=== PATIENT | female | born 1940 | race African-American/Black ===

== ENCOUNTER 2018-08-22 03:05 | Inpatient (IN) | payer OTHER, MEDICAID ==
[~2018-08-22] VITALS: Ht 157.5 cm; Wt 49.9 kg
[~2018-08-22 03:05] MED LIST: CHOL100046 PO; CINA30 PO; CYAN10009 PO; FAMO20TA8 PO; FISH OIL; HYDR100T26 PO; NEPVIT PO; NIFE90TA2 PO; OCD MT; SEVE800T8 PO
[2018-08-22] MEDS ORDERED: ACETAMINOPHEN WITH CODEINE 300/30MG TABLET PO ONE (03:45)
[2018-08-22] MEDS ORDERED: TRAMADOL 50MG TABLET PO ONE (05:45)
[2018-08-22] MEDS ORDERED: IBUPROFEN 600MG TABLET PO PRN ×2 (06:00→16:00)
[2018-08-22 06:31] LABS: HEMATOCRIT. 35.5 % (36.0-48.0); HEMOGLOBIN. 11.6 g/dL (12.0-16.0); MEAN CORPUSCULAR HEMOGLOBIN 32.3 pg (28.0-32.0); MEAN CORPUSCULAR VOLUME 99.1 fL (81.0-99.0); MEAN PLATELET VOLUME 8.1 fl (7.4-10.4); PLATELET 148 x1000/uL (130-400); RED BLOOD CELL COUNT 3.58 mill/uL (4.2-5.4); RED CELL DISTRIBUTION WIDTH 15.5 % (11.6-14.6)
[2018-08-22 06:38] LABS: CHLORIDE 95 mEq/L (98-107)
[2018-08-22 07:04] LABS: PLATELET ESTIMATE NORMAL
[2018-08-22] MEDS ORDERED: IPRATROPIUM/ALBUTEROL 0.5-3(2.5)MG/3ML NEB INH PRN (08:15)
[2018-08-22] MEDS ORDERED: GUAIFENESIN 200MG/10ML SUGAR FREE UDC PO PRN (08:15)
[2018-08-22] MEDS ORDERED: DOCUSATE SODIUM 100MG CAPSULE PO PRN (08:15)
[2018-08-22] MEDS ORDERED: MORPHINE SULFATE 4 MG/ML CPJ (NOT FOR IM USE) IV PRN (08:15)
[2018-08-22] MEDS ORDERED: CLONIDINE 0.1MG TABLET PO PRN (08:15)
[2018-08-22] MEDS ORDERED: TRAMADOL 50MG TABLET PO PRN (08:15)
[2018-08-22] MEDS ORDERED: ONDANSETRON HCL 4MG/2ML INJ IV PRN (08:15)
[2018-08-22] MEDS ORDERED: MAGNESIUM/ALUMINUM HYDROXIDE/SIMETHICONE 30ML UDC PO PRN (08:15)
[2018-08-22] MEDS ORDERED: NITROGLYCERIN 0.4MG TABLET SL SL PRN (08:15)
[2018-08-22] MEDS ORDERED: ACETAMINOPHEN 325MG TABLET PO PRN (08:15)
[2018-08-22] MEDS ORDERED: LORAZEPAM 0.5MG TABLET PO PRN (08:15)
[2018-08-22 08:55] VITALS: BP 114/62
[2018-08-22] MEDS: FOLIC ACID/VITAMIN B COMP W-C TABLET PO SCH (10:21)
[2018-08-22] MEDS: FAMOTIDINE 20MG TABLET PO SCH (10:21)
[2018-08-22] MEDS: SEVELAMER CARBONATE 800 MG TABLET PO SCH ×3 (10:21→17:21)
[2018-08-22] MEDS: ENOXAPARIN 30MG/0.3ML SYR SUBCUT SCH (10:22)
[2018-08-22 12:00] VITALS: BP 114/62
[2018-08-22 15:49] VITALS: BP 127/59
[2018-08-22 20:00] VITALS: BP 117/50
[2018-08-22] MEDS: CINACALCET HCL 30MG TABLET PO SCH (20:29)
[2018-08-22] MEDS ORDERED: ZOLPIDEM TARTRATE 5MG TABLET PO PRN (21:00)
[2018-08-23] VITALS: BP 128/62
[2018-08-23 06:04] LABS: BASOPHILS % 0.4 % (0.0-2.0); EOSINOPHILS % 1.3 % (0.0-5.0); HEMATOCRIT. 33.8 % (36.0-48.0); HEMOGLOBIN. 11.4 g/dL (12.0-16.0); LYMPHOCYTES % 14.7 % (20.0-50.0); MEAN CORPUSCULAR HEMOGLOBIN 33.1 pg (28.0-32.0); MEAN CORPUSCULAR VOLUME 98.7 fL (81.0-99.0); MEAN PLATELET VOLUME 8.8 fl (7.4-10.4); NEUTROPHILS % 71.6 % (40.0-76.0); PLATELET 147 x1000/uL (130-400); RED BLOOD CELL COUNT 3.43 mill/uL (4.2-5.4); RED CELL DISTRIBUTION WIDTH 15.7 % (11.6-14.6)
[2018-08-23 06:35] LABS: PHOSPHORUS 3.1 mg/dL (2.5-4.9)
[2018-08-23 08:00] VITALS: BP 106/55
[2018-08-23] MEDS: FAMOTIDINE 20MG TABLET PO SCH (09:03)
[2018-08-23] MEDS: SEVELAMER CARBONATE 800 MG TABLET PO SCH ×3 (09:03→18:32)
[2018-08-23] MEDS: CINACALCET HCL 30MG TABLET PO SCH (09:03)
[2018-08-23] MEDS: FOLIC ACID/VITAMIN B COMP W-C TABLET PO SCH (09:03)
[2018-08-23] MEDS: ENOXAPARIN 30MG/0.3ML SYR SUBCUT SCH (10:31)
[2018-08-23 12:00] VITALS: BP 103/55
[2018-08-23 16:00] VITALS: BP 135/66
[2018-08-23 18:58] VITALS: BP 127/62
== END 2018-08-23 19:30 | disposition short-term general hospital (02) | DRG 553 ==
LOC: ER 03:05 → 6EST 06:01 → EDBEDREQ 06:02 → EDBEDREQTM 06:02 → ENRESERV 06:57
PROVIDERS: ADMIT Internal Medicine; ATTEND Internal Medicine
PROC: 5A1D70Z Performance of Urinary Filtration, Intermittent, Less than 6 Hours Per Day (ICD-10-PCS; principal; 2018-08-22)
DX: M16.10 Unilateral primary osteoarthritis, unspecified hip (principal); N18.6 End stage renal disease; E44.0 Moderate protein-calorie malnutrition; I13.2 Hypertensive heart and chronic kidney disease with heart failure and with stage 5 chronic kidney disease, or end stage renal disease; N25.81 Secondary hyperparathyroidism of renal origin; S76.012A Strain of muscle, fascia and tendon of left hip, initial encounter; D63.8 Anemia in other chronic diseases classified elsewhere; R26.2 Difficulty in walking, not elsewhere classified; J44.9 Chronic obstructive pulmonary disease, unspecified; I50.9 Heart failure, unspecified; X58.XXXA Exposure to other specified factors, initial encounter; Z99.2 Dependence on renal dialysis; Z88.0 Allergy status to penicillin; Z88.8 Allergy status to other drugs, medicaments and biological substances; Z79.899 Other long term (current) drug therapy; Y93.89 Activity, other specified; Z82.49 Family history of ischemic heart disease and other diseases of the circulatory system; Y92.89 Other specified places as the place of occurrence of the external cause; Y99.8 Other external cause status; Z68.20 Body mass index [BMI] 20.0-20.9, adult
CPT/HCPCS: 36415; 71045; 72192; 73721; 80048; 80061; 83036; 83735; 84100; 85651; 86140; 93970; 99285; J1650; J7030

== ENCOUNTER 2019-05-21 06:18 | Emergency (ER) | payer OTHER, MEDICAID ==
[~2019-05-21] VITALS: Ht 162.6 cm; Wt 64.0 kg
[2019-05-21] MEDS ORDERED: ONDANSETRON HCL 4MG/2ML INJ IV ONE ×2 (08:15→09:30)
[2019-05-21 10:39] LABS: INR 1.1; PROTHROMBIN TIME 11.4 sec (9.6-11.0)
[2019-05-21 10:44] LABS: CHLORIDE 95 mEq/L (98-107)
[2019-05-21 10:53] LABS: BASOPHILS % 0.7 % (0.0-2.0); EOSINOPHILS % 1.5 % (0.0-5.0); HEMATOCRIT. 40.7 % (36.0-48.0); HEMOGLOBIN. 13.6 g/dL (12.0-16.0); LYMPHOCYTES % 18.8 % (20.0-50.0); MEAN CORPUSCULAR HEMOGLOBIN 33.1 pg (28.0-32.0); MEAN CORPUSCULAR VOLUME 99.1 fL (81.0-99.0); MEAN PLATELET VOLUME 9.9 fl (7.4-10.4); MONOCYTES % 9.8 % (2.0-8.0); NEUTROPHILS % 69.2 % (40.0-76.0); PLATELET 103 x1000/uL (130-400); RED BLOOD CELL COUNT 4.11 mill/uL (4.2-5.4); RED CELL DISTRIBUTION WIDTH 16.3 % (11.6-14.6)
[2019-05-21 13:01] VITALS: BP 156/78
[2019-05-21] MEDS ORDERED: IOHEXOL-300 100 ML BOTTLE ONE (15:22)
== END 2019-05-21 14:50 | disposition short-term general hospital (02) ==
LOC: ER 06:49
DX: R10.13 Epigastric pain (principal); J45.909 Unspecified asthma, uncomplicated; I12.9 Hypertensive chronic kidney disease with stage 1 through stage 4 chronic kidney disease, or unspecified chronic kidney disease; N18.9 Chronic kidney disease, unspecified; Z88.8 Allergy status to other drugs, medicaments and biological substances; Z88.0 Allergy status to penicillin
CPT/HCPCS: 36415; 71045; 74177; 76705; 80053; 83690; 84484; 85025; 85610; 93005; 96374; 96376; 99285; J2405; Q9967

== ENCOUNTER 2019-05-30 00:43 | Emergency (ER) | payer OTHER, MEDICAID ==
[~2019-05-30] VITALS: Ht 160 cm; Wt 55.0 kg
[~2019-05-30 00:43] MED LIST changes: +CYAN-50 PO; -CYAN10009 PO
[2019-05-30 02:26] LABS: CHLORIDE 101 mEq/L (98-107)
[2019-05-30 02:31] LABS: HEMATOCRIT 37.6 % (36.0-48.0); HEMOGLOBIN 12.5 g/dL (12.0-16.0); MEAN CORPUSCULAR HEMOGLOBIN 32.9 pg (28.0-32.0); MEAN CORPUSCULAR VOLUME 99.2 fL (81.0-99.0); PLATELET 163 x1000/uL (130-400); RED BLOOD CELL COUNT 3.79 mill/uL (4.2-5.4); RED CELL DISTRIBUTION WIDTH 16.7 % (11.6-14.6)
[2019-05-30 03:15] VITALS: BP 126/70
== END 2019-05-30 03:15 | disposition home or self-care (01) ==
LOC: ER 00:43
DX: T82.49XA Other complication of vascular dialysis catheter, initial encounter (principal); J45.909 Unspecified asthma, uncomplicated; N18.6 End stage renal disease; Z99.2 Dependence on renal dialysis; Z88.0 Allergy status to penicillin; Z88.8 Allergy status to other drugs, medicaments and biological substances; Y84.1 Kidney dialysis as the cause of abnormal reaction of the patient, or of later complication, without mention of misadventure at the time of the procedure; Y92.018 Other place in single-family (private) house as the place of occurrence of the external cause
CPT/HCPCS: 36415; 85027; 86850; 86900; 99284

== ENCOUNTER 2019-07-20 22:29 | Inpatient (IN) | payer OTHER, MEDICAID ==
[~2019-07-20] VITALS: Ht 157.5 cm; Wt 51.9 kg
[2019-07-20] MEDS ORDERED: SODIUM CHLORIDE 0.9% 500 ML IV ONE (22:46)
[2019-07-20] MEDS ORDERED: ONDANSETRON HCL 4MG/2ML INJ IV STA (22:46)
[2019-07-20] MEDS ORDERED: MORPHINE SULFATE 4 MG/ML CPJ (NOT FOR IM USE) IV STA (22:46)
[2019-07-20 23:22] LABS: BASOPHILS % 0.4 % (0.0-2.0); EOSINOPHILS % 1.6 % (0.0-5.0); HEMATOCRIT. 42.9 % (36.0-48.0); HEMOGLOBIN. 13.9 g/dL (12.0-16.0); LYMPHOCYTES % 13.1 % (20.0-50.0); MEAN CORPUSCULAR HEMOGLOBIN 32.7 pg (28.0-32.0); MEAN CORPUSCULAR VOLUME 100.6 fL (81.0-99.0); MEAN PLATELET VOLUME 9.3 fl (7.4-10.4); MONOCYTES % 10.8 % (2.0-8.0); NEUTROPHILS % 74.1 % (40.0-76.0); PLATELET 110 x1000/uL (130-400); RED BLOOD CELL COUNT 4.26 mill/uL (4.2-5.4); RED CELL DISTRIBUTION WIDTH 16.7 % (11.6-14.6)
[2019-07-20 23:26] LABS: CHLORIDE 95 mEq/L (98-107)
[2019-07-20 23:28] LABS: INR 1.1; PROTHROMBIN TIME 11.6 sec (9.6-11.0)
[2019-07-21] MEDS ORDERED: CEFTRIAXONE 2 G PREMIX 50 ML IV SCH (01:48)
[2019-07-21] MEDS ORDERED: METRONIDAZOLE 500 MG PREMIX 100 ML IV SCH (01:49)
[2019-07-21 08:38] VITALS: BP 118/60
[2019-07-21 08:40] VITALS: BP 118/60
[2019-07-21 12:00] VITALS: BP 121/57
[2019-07-21] MEDS: HYDROCODONE/ACETAMINOPHEN 10/325MG TABLET PO PRN (12:05)
[2019-07-21 16:00] VITALS: BP 129/70
[2019-07-21] MEDS ORDERED: MAGNESIUM/ALUMINUM HYDROXIDE/SIMETHICONE 30ML UDC PO PRN (19:15)
[2019-07-21] MEDS ORDERED: CLONIDINE 0.1MG TABLET PO PRN (19:15)
[2019-07-21] MEDS ORDERED: ONDANSETRON HCL 4MG/2ML INJ IV PRN (19:15)
[2019-07-21] MEDS ORDERED: LORAZEPAM 0.5MG TABLET PO PRN (19:15)
[2019-07-21] MEDS ORDERED: DIPHENHYDRAMINE 50MG/ML VIAL IV PRN (19:15)
[2019-07-21] MEDS ORDERED: ACETAMINOPHEN 325MG TABLET PO PRN (19:15)
[2019-07-21] MEDS ORDERED: IPRATROPIUM/ALBUTEROL 0.5-3(2.5)MG/3ML NEB HHN PRN (19:15)
[2019-07-21] MEDS ORDERED: GUAIFENESIN 200MG/10ML SUGAR FREE UDC PO PRN (19:15)
[2019-07-21] MEDS ORDERED: MAGNESIUM HYDROXIDE 400MG/5ML 30ML UDC PO PRN (19:30)
[2019-07-21] MEDS ORDERED: ZOLPIDEM TARTRATE 5MG TABLET PO PRN (19:30)
[2019-07-21 20:00] VITALS: BP 121/62
[2019-07-21] MEDS ORDERED: FAMOTIDINE 20MG TABLET PO SCH (21:00)
[2019-07-22] VITALS: BP 119/59
[2019-07-22 04:00] VITALS: BP 121/54
[2019-07-22 08:00] VITALS: BP 120/56
[2019-07-22] MEDS: SEVELAMER CARBONATE 800 MG TABLET PO SCH ×3 (08:29→18:39)
[2019-07-22] MEDS: CALCIUM CARBONATE 500MG TABLET CHEW PO SCH ×2 (08:29→18:39)
[2019-07-22] MEDS ORDERED: CHOLECALCIFEROL (D3) 1000 UNIT TABLET PO SCH (09:00)
[2019-07-22] MEDS: HYDROCODONE/ACETAMINOPHEN 10/325MG TABLET PO PRN (09:01)
[2019-07-22 12:00] VITALS: BP 122/58
[2019-07-22 16:00] VITALS: BP 135/59
[2019-07-22 17:25] VITALS: BP 135/59
== END 2019-07-22 19:30 | disposition home or self-care (01) | DRG 444 ==
LOC: ER 22:29 → 6WST 07-21 05:29 → EDBEDREQDT 07-21 05:32 → EDBEDREQTM 07-21 05:32 → EDBEDREQ 07-21 05:32 → ENRESERV 07-21 07:51
PROVIDERS: ADMIT Internal Medicine; ATTEND Internal Medicine
PROC: 5A1D70Z Performance of Urinary Filtration, Intermittent, Less than 6 Hours Per Day (ICD-10-PCS; principal; 2019-07-21)
PROC: 5A1D70Z Performance of Urinary Filtration, Intermittent, Less than 6 Hours Per Day (ICD-10-PCS; 2019-07-22)
DX: K81.9 Cholecystitis, unspecified (principal); N18.6 End stage renal disease; N25.81 Secondary hyperparathyroidism of renal origin; I13.2 Hypertensive heart and chronic kidney disease with heart failure and with stage 5 chronic kidney disease, or end stage renal disease; I50.42 Chronic combined systolic (congestive) and diastolic (congestive) heart failure; E78.00 Pure hypercholesterolemia, unspecified; M54.9 Dorsalgia, unspecified; D69.6 Thrombocytopenia, unspecified; Z99.2 Dependence on renal dialysis; Z90.710 Acquired absence of both cervix and uterus; Z79.899 Other long term (current) drug therapy; Z88.0 Allergy status to penicillin; Z88.8 Allergy status to other drugs, medicaments and biological substances
CPT/HCPCS: 36415; 71045; 74176; 76705; 83605; 84145; 84484; 86850; 86900; 93005; 96365; 96367; 96375; 97162; 97166; 97530; 99291; J0696; J2270; J2405; J3490; J7040

== ENCOUNTER 2019-09-16 01:30 | Emergency (ER) | payer OTHER, MEDICAID ==
[~2019-09-16] VITALS: Ht 160 cm; Wt 48.0 kg
[~2019-09-16 01:30] MED LIST changes: -FISH OIL; -HYDR100T26 PO
[2019-09-16] MEDS ORDERED: HYDROCODONE/ACETAMINOPHEN 5/325MG TABLET PO ONE (02:00)
[2019-09-16 04:10] VITALS: BP 119/55
== END 2019-09-16 04:56 | disposition home or self-care (01) ==
LOC: ER 01:30
DX: M79.672 Pain in left foot (principal); M79.671 Pain in right foot; I12.0 Hypertensive chronic kidney disease with stage 5 chronic kidney disease or end stage renal disease; N18.6 End stage renal disease; Z99.2 Dependence on renal dialysis; Z90.10 Acquired absence of unspecified breast and nipple; Z90.710 Acquired absence of both cervix and uterus; Z88.0 Allergy status to penicillin; Z88.8 Allergy status to other drugs, medicaments and biological substances
CPT/HCPCS: 36415; 80048; 99283

== ENCOUNTER 2019-09-19 00:08 | Inpatient (IN) | payer OTHER, MEDICAID ==
[~2019-09-19] VITALS: Ht 157.5 cm; Wt 40.8 kg
[2019-09-19 04:47] LABS: BASOPHILS % 0.6 % (0.0-2.0); EOSINOPHILS % 4.9 % (0.0-5.0); HEMATOCRIT. 40.7 % (36.0-48.0); HEMOGLOBIN. 13.1 g/dL (12.0-16.0); LYMPHOCYTES % 22.1 % (20.0-50.0); MEAN CORPUSCULAR HEMOGLOBIN 32.6 pg (28.0-32.0); MEAN CORPUSCULAR VOLUME 101.2 fL (81.0-99.0); MEAN PLATELET VOLUME 10.1 fl (7.4-10.4); MONOCYTES % 9.4 % (2.0-8.0); PLATELET 97 x1000/uL (130-400); RED BLOOD CELL COUNT 4.02 mill/uL (4.2-5.4); RED CELL DISTRIBUTION WIDTH 17.3 % (11.6-14.6)
[2019-09-19 04:55] LABS: CHLORIDE 105 mEq/L (98-107)
[2019-09-19] MEDS ORDERED: MAGNESIUM/ALUMINUM HYDROXIDE/SIMETHICONE 30ML UDC PO PRN (08:45)
[2019-09-19] MEDS ORDERED: GUAIFENESIN 200MG/10ML SUGAR FREE UDC PO PRN (08:45)
[2019-09-19] MEDS ORDERED: DIPHENHYDRAMINE 50MG/ML VIAL IV PRN (08:45)
[2019-09-19] MEDS ORDERED: ACETAMINOPHEN 325MG TABLET PO PRN (08:45)
[2019-09-19] MEDS ORDERED: CLONIDINE 0.1MG TABLET PO PRN (08:45)
[2019-09-19] MEDS ORDERED: ONDANSETRON HCL 4MG/2ML INJ IV PRN (08:45)
[2019-09-19] MEDS ORDERED: IPRATROPIUM/ALBUTEROL 0.5-3(2.5)MG/3ML NEB NEB PRN (08:45)
[2019-09-19 10:15] VITALS: BP 125/68
[2019-09-19 11:18] VITALS: BP 125/68
[2019-09-19 16:00] VITALS: BP 137/68
[2019-09-19 20:00] VITALS: BP 135/69
[2019-09-19] MEDS: SODIUM CHLORIDE 0.9% INJ 3ML FLUSH IVF SCH (22:34)
[2019-09-20] VITALS: BP 126/58
[2019-09-20 04:00] VITALS: BP 131/63
[2019-09-20] MEDS: SODIUM CHLORIDE 0.9% INJ 3ML FLUSH IVF SCH (06:14)
[2019-09-20 08:00] VITALS: BP 130/60
[2019-09-20 12:00] VITALS: BP 130/61
[2019-09-20 15:12] VITALS: BP 149/68
== END 2019-09-20 16:30 | disposition home or self-care (01) | DRG 291 ==
LOC: ER 00:08 → 7WST 05:59 → ENRESERV 07:22
PROVIDERS: ADMIT Internal Medicine; ATTEND Internal Medicine
PROC: 5A1D70Z Performance of Urinary Filtration, Intermittent, Less than 6 Hours Per Day (ICD-10-PCS; principal; 2019-09-19)
DX: I13.2 Hypertensive heart and chronic kidney disease with heart failure and with stage 5 chronic kidney disease, or end stage renal disease (principal); I50.33 Acute on chronic diastolic (congestive) heart failure; N18.6 End stage renal disease; M79.672 Pain in left foot; I73.9 Peripheral vascular disease, unspecified; M79.671 Pain in right foot; I25.10 Atherosclerotic heart disease of native coronary artery without angina pectoris; Z90.710 Acquired absence of both cervix and uterus; Z99.2 Dependence on renal dialysis; Z88.0 Allergy status to penicillin; Z88.8 Allergy status to other drugs, medicaments and biological substances; Z79.899 Other long term (current) drug therapy; Z90.10 Acquired absence of unspecified breast and nipple
CPT/HCPCS: 36415; 71045; 73630; 83880; 84484; 93005; 93923; 99285

== ENCOUNTER 2019-09-21 07:19 | Emergency (ER) | payer OTHER, MEDICAID ==
[~2019-09-21] VITALS: Ht 165.1 cm; Wt 60.0 kg
[2019-09-21] MEDS ORDERED: OXYCODONE HCL/ACETAMINOPHEN 5/325MG TABLET PO ONE (08:15)
[2019-09-21] MEDS ORDERED: KETOROLAC 60MG/2ML VIAL IM ONE (08:15)
[2019-09-21 10:18] VITALS: BP 139/65
== END 2019-09-21 10:22 | disposition home or self-care (01) ==
LOC: ER 07:19
DX: M54.2 Cervicalgia (principal)
CPT/HCPCS: 72125; 96372; 99284; J1885

== ENCOUNTER 2019-10-18 04:00 | Inpatient (IN) | payer OTHER, MEDICAID ==
[~2019-10-18] VITALS: Ht 152.4 cm; Wt 46.3 kg
[2019-10-18] MEDS ORDERED: SODIUM CHLORIDE 0.9% 1,000 ML IV ONE (04:58)
[2019-10-18 06:47] LABS: BASOPHILS % 0.9 % (0.0-2.0); EOSINOPHILS % 3.7 % (0.0-5.0); HEMATOCRIT. 43.2 % (36.0-48.0); HEMOGLOBIN. 14.1 g/dL (12.0-16.0); LYMPHOCYTES % 21.9 % (20.0-50.0); MEAN CORPUSCULAR HEMOGLOBIN 32.7 pg (28.0-32.0); MEAN CORPUSCULAR VOLUME 100.1 fL (81.0-99.0); MEAN PLATELET VOLUME 9.2 fl (7.4-10.4); MONOCYTES % 10.6 % (2.0-8.0); NEUTROPHILS % 62.9 % (40.0-76.0); PLATELET 102 x1000/uL (130-400); RED BLOOD CELL COUNT 4.31 mill/uL (4.2-5.4); RED CELL DISTRIBUTION WIDTH 17.6 % (11.6-14.6)
[2019-10-18 06:53] LABS: CHLORIDE 102 mEq/L (98-107)
[2019-10-18 07:12] LABS: INR 1.1; PROTHROMBIN TIME 11.6 sec (9.6-11.0)
[2019-10-18] MEDS ORDERED: ONDANSETRON HCL 4MG/2ML INJ IV ONE (07:45)
[2019-10-18] MEDS ORDERED: KETOROLAC 15MG/ML VIAL IV ONE (07:45)
[2019-10-18] MEDS ORDERED: METRONIDAZOLE 500 MG PREMIX 100 ML IV ONE (08:30)
[2019-10-18] MEDS ORDERED: CEFTRIAXONE 1 G PREMIX 50 ML IV ONE (08:30)
[2019-10-18] MEDS ORDERED: LORAZEPAM 0.5MG TABLET PO PRN (15:00)
[2019-10-18] MEDS ORDERED: IPRATROPIUM/ALBUTEROL 0.5-3(2.5)MG/3ML NEB HHN PRN (15:00)
[2019-10-18] MEDS ORDERED: CLONIDINE 0.1MG TABLET PO PRN (15:00)
[2019-10-18] MEDS ORDERED: ACETAMINOPHEN 325MG TABLET PO PRN (15:00)
[2019-10-18] MEDS ORDERED: IOHEXOL-350 100 ML BOTTLE ONE (15:16)
[2019-10-18 15:59] LABS: AMYLASE 219 IU/L (25-115)
[2019-10-18 16:23] VITALS: BP 122/64
[2019-10-18] MEDS: HYDROCODONE/ACETAMINOPHEN 5/325MG TABLET PO PRN ×2 (16:44→22:45)
[2019-10-18 18:31] VITALS: BP 122/64
[2019-10-18 20:00] VITALS: BP 123/64
[2019-10-19] VITALS: BP 115/66
[2019-10-19 04:00] VITALS: BP 117/63
[2019-10-19 07:24] LABS: BASOPHILS % 1.1 % (0.0-2.0); EOSINOPHILS % 8.7 % (0.0-5.0); HEMATOCRIT. 44.1 % (36.0-48.0); HEMOGLOBIN. 14.3 g/dL (12.0-16.0); LYMPHOCYTES % 25.8 % (20.0-50.0); MEAN CORPUSCULAR HEMOGLOBIN 32.4 pg (28.0-32.0); MEAN CORPUSCULAR VOLUME 100.1 fL (81.0-99.0); MEAN PLATELET VOLUME 9.3 fl (7.4-10.4); NEUTROPHILS % 53.4 % (40.0-76.0); PLATELET 113 x1000/uL (130-400); RED BLOOD CELL COUNT 4.41 mill/uL (4.2-5.4); RED CELL DISTRIBUTION WIDTH 17.9 % (11.6-14.6)
[2019-10-19 07:53] LABS: FOLIC ACID (FOLATE) SERUM >20 ng/mL ng/mL (>5.38)
[2019-10-19 08:03] LABS: VITAMIN B12 SERUM 1421 pg/mL (211-911)
[2019-10-19 08:15] VITALS: BP 131/62
[2019-10-19 08:15] LABS: PHOSPHORUS 4.7 mg/dL (2.5-4.9)
[2019-10-19] MEDS: HYDROCODONE/ACETAMINOPHEN 5/325MG TABLET PO PRN ×2 (10:00→21:13)
[2019-10-19 12:19] VITALS: BP 152/75
[2019-10-19 16:28] VITALS: BP 125/62
[2019-10-19 20:00] VITALS: BP 124/60
[2019-10-19] MEDS: NIFEDIPINE XL 90MG TAB PO SCH (21:03)
[2019-10-20] VITALS: BP 124/62
[2019-10-20 04:00] VITALS: BP 117/50
[2019-10-20] MEDS: HYDROCODONE/ACETAMINOPHEN 5/325MG TABLET PO PRN ×3 (05:18→18:36)
[2019-10-20 07:10] LABS: EOSINOPHILS % 6.9 % (0.0-5.0); HEMATOCRIT. 38.9 % (36.0-48.0); HEMOGLOBIN. 12.8 g/dL (12.0-16.0); LYMPHOCYTES % 21.5 % (20.0-50.0); MEAN CORPUSCULAR HEMOGLOBIN 32.8 pg (28.0-32.0); MEAN CORPUSCULAR VOLUME 99.6 fL (81.0-99.0); MEAN PLATELET VOLUME 9.3 fl (7.4-10.4); MONOCYTES % 14.2 % (2.0-8.0); NEUTROPHILS % 56.4 % (40.0-76.0); PLATELET 108 x1000/uL (130-400); RED BLOOD CELL COUNT 3.91 mill/uL (4.2-5.4); RED CELL DISTRIBUTION WIDTH 17.5 % (11.6-14.6)
[2019-10-20] MEDS: FOLIC ACID/VITAMIN B COMP W-C TABLET PO SCH ×2 (09:00→09:25)
[2019-10-20] MEDS: CHOLECALCIFEROL (D3) 1000 UNIT TABLET PO SCH ×2 (09:00→09:25)
[2019-10-20] MEDS: NIFEDIPINE XL 90MG TAB PO SCH ×2 (09:00→09:24)
[2019-10-20] MEDS: CYANOCOBALAMIN 1000MCG TABLET PO SCH ×2 (09:00→09:25)
[2019-10-20] MEDS: MORPHINE SULFATE 2 MG/ML CPJ (NOT FOR IM USE) IV PRN (09:46)
[2019-10-20 12:00] VITALS: BP 112/55
[2019-10-20 16:00] VITALS: BP 101/49
[2019-10-20 20:00] VITALS: BP 121/51
[2019-10-20] MEDS: NIFEDIPINE XL 30MG TAB PO SCH (21:00)
[2019-10-21] VITALS: BP 117/42
[2019-10-21 04:00] VITALS: BP 121/54
[2019-10-21 06:41] LABS: BASOPHILS % 0.9 % (0.0-2.0); EOSINOPHILS % 7.8 % (0.0-5.0); HEMATOCRIT. 37.8 % (36.0-48.0); HEMOGLOBIN. 12.6 g/dL (12.0-16.0); MEAN CORPUSCULAR HEMOGLOBIN 32.7 pg (28.0-32.0); MEAN CORPUSCULAR VOLUME 98.4 fL (81.0-99.0); MEAN PLATELET VOLUME 8.8 fl (7.4-10.4); MONOCYTES % 11.4 % (2.0-8.0); NEUTROPHILS % 53.9 % (40.0-76.0); PLATELET 112 x1000/uL (130-400); RED BLOOD CELL COUNT 3.84 mill/uL (4.2-5.4); RED CELL DISTRIBUTION WIDTH 17.5 % (11.6-14.6)
[2019-10-21 06:57] LABS: PHOSPHORUS 4.8 mg/dL (2.5-4.9)
[2019-10-21 08:00] VITALS: BP 165/84
[2019-10-21] MEDS: FOLIC ACID/VITAMIN B COMP W-C TABLET PO SCH (08:50)
[2019-10-21] MEDS: HYDROCODONE/ACETAMINOPHEN 5/325MG TABLET PO PRN ×3 (08:51→23:03)
[2019-10-21 13:50] VITALS: BP 123/62
[2019-10-21 16:45] VITALS: BP 113/56
[2019-10-21 20:00] VITALS: BP 132/58
[2019-10-21] MEDS: NIFEDIPINE XL 30MG TAB PO SCH (21:00)
[2019-10-22] VITALS: BP 134/60
[2019-10-22 04:00] VITALS: BP 143/60
[2019-10-22] MEDS: HYDROCODONE/ACETAMINOPHEN 5/325MG TABLET PO PRN ×2 (04:35→21:00)
[2019-10-22 06:54] LABS: PHOSPHORUS 3.9 mg/dL (2.5-4.9)
[2019-10-22 08:00] VITALS: BP 144/74
[2019-10-22 08:04] LABS: BASOPHILS % 1.4 % (0.0-2.0); EOSINOPHILS % 4.1 % (0.0-5.0); HEMATOCRIT. 39.9 % (36.0-48.0); HEMOGLOBIN. 13.1 g/dL (12.0-16.0); LYMPHOCYTES % 15.2 % (20.0-50.0); MEAN CORPUSCULAR HEMOGLOBIN 32.5 pg (28.0-32.0); MEAN CORPUSCULAR VOLUME 98.7 fL (81.0-99.0); MEAN PLATELET VOLUME 9.4 fl (7.4-10.4); MONOCYTES % 14.8 % (2.0-8.0); NEUTROPHILS % 64.5 % (40.0-76.0); PLATELET 118 x1000/uL (130-400); RED BLOOD CELL COUNT 4.04 mill/uL (4.2-5.4); RED CELL DISTRIBUTION WIDTH 17.2 % (11.6-14.6)
[2019-10-22] MEDS: FOLIC ACID/VITAMIN B COMP W-C TABLET PO SCH (09:41)
[2019-10-22 12:00] VITALS: BP 131/58
[2019-10-22 16:53] VITALS: BP 139/69
[2019-10-22 20:00] VITALS: BP 136/72
[2019-10-22] MEDS: NIFEDIPINE XL 30MG TAB PO SCH (21:01)
[2019-10-23] VITALS: BP 126/61
[2019-10-23 04:00] VITALS: BP 130/74
[2019-10-23] MEDS: HYDROCODONE/ACETAMINOPHEN 5/325MG TABLET PO PRN ×3 (04:00→14:53)
[2019-10-23 08:00] VITALS: BP 127/61
[2019-10-23] MEDS: FOLIC ACID/VITAMIN B COMP W-C TABLET PO SCH (08:19)
[2019-10-23 12:00] VITALS: BP 117/60
[2019-10-23 16:00] VITALS: BP 120/55
[2019-10-23 20:00] VITALS: BP 123/57
[2019-10-23] MEDS: NIFEDIPINE XL 30MG TAB PO SCH (21:00)
[2019-10-23] MEDS: MORPHINE SULFATE 2 MG/ML CPJ (NOT FOR IM USE) IV PRN (23:06)
[2019-10-24] VITALS: BP 135/69
[2019-10-24 04:00] VITALS: BP 137/71
[2019-10-24 06:54] LABS: BASOPHILS % 0.6 % (0.0-2.0); EOSINOPHILS % 5.2 % (0.0-5.0); HEMOGLOBIN. 12.8 g/dL (12.0-16.0); LYMPHOCYTES % 19.4 % (20.0-50.0); MEAN CORPUSCULAR HEMOGLOBIN 32.4 pg (28.0-32.0); MEAN CORPUSCULAR VOLUME 98.7 fL (81.0-99.0); MEAN PLATELET VOLUME 9.2 fl (7.4-10.4); MONOCYTES % 13.4 % (2.0-8.0); NEUTROPHILS % 61.4 % (40.0-76.0); PLATELET 120 x1000/uL (130-400); RED BLOOD CELL COUNT 3.95 mill/uL (4.2-5.4); RED CELL DISTRIBUTION WIDTH 17.3 % (11.6-14.6)
[2019-10-24 07:30] LABS: PHOSPHORUS 3.4 mg/dL (2.5-4.9)
[2019-10-24 08:00] VITALS: BP 135/65
[2019-10-24] MEDS: FOLIC ACID/VITAMIN B COMP W-C TABLET PO SCH (08:38)
[2019-10-24] MEDS: MORPHINE SULFATE 2 MG/ML CPJ (NOT FOR IM USE) IV PRN (08:39)
[2019-10-24 12:00] VITALS: BP 136/67
[2019-10-24 14:44] VITALS: BP 136/67
== END 2019-10-24 17:32 | disposition home health service (06) | DRG 393 ==
LOC: ER 04:00 → ENRESERV 15:39 → 6WST 16:20
PROVIDERS: ADMIT Internal Medicine; ATTEND Internal Medicine
PROC: 5A1D70Z Performance of Urinary Filtration, Intermittent, Less than 6 Hours Per Day (ICD-10-PCS; principal; 2019-10-19)
PROC: 5A1D70Z Performance of Urinary Filtration, Intermittent, Less than 6 Hours Per Day (ICD-10-PCS; 2019-10-21)
PROC: 5A1D70Z Performance of Urinary Filtration, Intermittent, Less than 6 Hours Per Day (ICD-10-PCS; 2019-10-22)
PROC: 5A1D70Z Performance of Urinary Filtration, Intermittent, Less than 6 Hours Per Day (ICD-10-PCS; 2019-10-24)
DX: K63.89 Other specified diseases of intestine (principal); I50.23 Acute on chronic systolic (congestive) heart failure; N18.6 End stage renal disease; K55.049 Acute infarction of large intestine, extent unspecified; N25.81 Secondary hyperparathyroidism of renal origin; R18.8 Other ascites; I42.0 Dilated cardiomyopathy; I13.2 Hypertensive heart and chronic kidney disease with heart failure and with stage 5 chronic kidney disease, or end stage renal disease; Z94.0 Kidney transplant status; D69.6 Thrombocytopenia, unspecified; D72.819 Decreased white blood cell count, unspecified; D72.821 Monocytosis (symptomatic); D75.89 Other specified diseases of blood and blood-forming organs; I44.0 Atrioventricular block, first degree; I27.20 Pulmonary hypertension, unspecified; I25.10 Atherosclerotic heart disease of native coronary artery without angina pectoris; E21.3 Hyperparathyroidism, unspecified; R26.89 Other abnormalities of gait and mobility; R74.0 Nonspecific elevation of levels of transaminase and lactic acid dehydrogenase [LDH]; R74.8 Abnormal levels of other serum enzymes; Z88.0 Allergy status to penicillin; Z88.8 Allergy status to other drugs, medicaments and biological substances; Z99.2 Dependence on renal dialysis; Z90.710 Acquired absence of both cervix and uterus; Z82.49 Family history of ischemic heart disease and other diseases of the circulatory system; Z79.899 Other long term (current) drug therapy; Z90.13 Acquired absence of bilateral breasts and nipples
CPT/HCPCS: 36415; 71045; 71100; 74174; 74176; 80048; 80053; 82150; 82607; 82746; 83605; 83735; 83880; 84100; 84484; 85025; 93005; 97116; 97162; 97530; 99285; C1893; J0696; J1885; J2270; J2405; J3490; J7030; Q9967

== ENCOUNTER 2020-01-05 04:04 | Emergency (ER) | payer OTHER, MEDICAID ==
[~2020-01-05] VITALS: Ht 167.6 cm; Wt 62.0 kg
[~2020-01-05 04:04] MED LIST changes: -CINA30 PO; -FAMO20TA8 PO
[2020-01-05] MEDS ORDERED: ACETAMINOPHEN 325MG TABLET PO STA (04:41)
[2020-01-05 06:30] VITALS: BP 129/83
== END 2020-01-05 06:33 | disposition home or self-care (01) ==
LOC: ER 04:04
DX: M54.2 Cervicalgia (principal); I25.10 Atherosclerotic heart disease of native coronary artery without angina pectoris; I12.0 Hypertensive chronic kidney disease with stage 5 chronic kidney disease or end stage renal disease; N18.6 End stage renal disease; Z99.2 Dependence on renal dialysis; Z90.710 Acquired absence of both cervix and uterus; Z79.899 Other long term (current) drug therapy; Z88.0 Allergy status to penicillin
CPT/HCPCS: 71045; 99283

== ENCOUNTER 2020-05-28 05:26 | Emergency (ER) | payer OTHER, MEDICAID ==
[~2020-05-28] VITALS: Ht 157.5 cm; Wt 55.0 kg
[2020-05-28] MEDS ORDERED: MORPHINE SULFATE 4 MG/ML CPJ (NOT FOR IM USE) IV STA (07:05)
[2020-05-28] MEDS ORDERED: ONDANSETRON HCL 4MG/2ML INJ IV STA (07:05)
[2020-05-28 07:57] LABS: BASOPHILS % 0.6 % (0.0-2.0); EOSINOPHILS % 4.5 % (0.0-5.0); HEMATOCRIT. 37.1 % (36.0-48.0); HEMOGLOBIN. 12.3 g/dL (12.0-16.0); LYMPHOCYTES % 18.4 % (20.0-50.0); MEAN CORPUSCULAR HEMOGLOBIN 32.6 pg (28.0-32.0); MEAN CORPUSCULAR VOLUME 98.6 fL (81.0-99.0); MEAN PLATELET VOLUME 9.6 fl (7.4-10.4); MONOCYTES % 10.2 % (2.0-8.0); NEUTROPHILS % 66.3 % (40.0-76.0); PLATELET 130 x1000/uL (130-400); RED BLOOD CELL COUNT 3.76 mill/uL (4.2-5.4); RED CELL DISTRIBUTION WIDTH 15.5 % (11.6-14.6)
[2020-05-28 07:58] LABS: CHLORIDE 99 mEq/L (98-107)
[2020-05-28 10:23] VITALS: BP 156/72
== END 2020-05-28 10:26 | disposition home or self-care (01) ==
LOC: ER 05:26
DX: S16.1XXA Strain of muscle, fascia and tendon at neck level, initial encounter (principal); I12.0 Hypertensive chronic kidney disease with stage 5 chronic kidney disease or end stage renal disease; I25.10 Atherosclerotic heart disease of native coronary artery without angina pectoris; N18.6 End stage renal disease; Z99.2 Dependence on renal dialysis; Z90.710 Acquired absence of both cervix and uterus; Z90.10 Acquired absence of unspecified breast and nipple; Z88.0 Allergy status to penicillin; Z88.8 Allergy status to other drugs, medicaments and biological substances; X58.XXXA Exposure to other specified factors, initial encounter; Y93.89 Activity, other specified; Y92.018 Other place in single-family (private) house as the place of occurrence of the external cause
CPT/HCPCS: 36415; 71045; 80053; 85025; 93005; 96374; 96375; 99285; J2270; J2405

== ENCOUNTER 2021-07-04 02:21 | Emergency (ER) | payer OTHER, MEDICAID ==
[~2021-07-04] VITALS: Ht 157.5 cm; Wt 47.0 kg
[2021-07-04] MEDS ORDERED: ASPIRIN 81MG TABLET PO ONE (02:30)
[2021-07-04 02:51] LABS: BASOPHILS % 0.6 % (0.0-2.0); EOSINOPHILS % 0.9 % (0.0-5.0); HEMATOCRIT. 37.3 % (36.0-48.0); HEMOGLOBIN. 12.4 g/dL (12.0-16.0); LYMPHOCYTES % 14.3 % (20.0-50.0); MEAN CORPUSCULAR HEMOGLOBIN 32.7 pg (28.0-32.0); MEAN CORPUSCULAR VOLUME 98.5 fL (81.0-99.0); MEAN PLATELET VOLUME 8.4 fl (7.4-10.4); MONOCYTES % 10.7 % (2.0-8.0); NEUTROPHILS % 73.5 % (40.0-76.0); PLATELET 184 x1000/uL (130-400); RED BLOOD CELL COUNT 3.78 mill/uL (4.2-5.4); RED CELL DISTRIBUTION WIDTH 15.4 % (11.6-14.6)
[2021-07-04 02:54] LABS: CHLORIDE 97 mEq/L (98-107)
[2021-07-04] MEDS ORDERED: MORPHINE SULFATE 4 MG/ML CPJ (NOT FOR IM USE) IV ONE (05:30)
[2021-07-04] MEDS ORDERED: IOHEXOL-350 100 ML BOTTLE ONE (09:35)
[2021-07-04 14:56] VITALS: BP 123/61
== END 2021-07-04 15:52 | disposition short-term general hospital (02) ==
LOC: ER 02:34 → CANBEDREQ 16:01
DX: I72.1 Aneurysm of artery of upper extremity (principal); I10 Essential (primary) hypertension; Z88.0 Allergy status to penicillin; Z81.1 Family history of alcohol abuse and dependence; Z88.8 Allergy status to other drugs, medicaments and biological substances; Z88.1 Allergy status to other antibiotic agents; Z79.899 Other long term (current) drug therapy
CPT/HCPCS: 36415; 70498; 71045; 71275; 73030; 73206; 74174; 80053; 83880; 84484; 85025; 93005; 93971; 96374; 99291; J2270; Q9967

== ENCOUNTER 2021-07-06 08:20 | Emergency (ER) | payer OTHER, MEDICAID ==
[~2021-07-06] VITALS: Ht 157.5 cm; Wt 57.0 kg
[2021-07-06] MEDS ORDERED: ACETAMINOPHEN 325MG TABLET PO ONE (08:45)
[2021-07-06 09:07] LABS: HEMATOCRIT. 40.9 % (36.0-48.0); HEMOGLOBIN. 13.5 g/dL (12.0-16.0); MEAN CORPUSCULAR HEMOGLOBIN 32.3 pg (28.0-32.0); MEAN CORPUSCULAR VOLUME 97.7 fL (81.0-99.0); MEAN PLATELET VOLUME 8.9 fl (7.4-10.4); PLATELET 174 x1000/uL (130-400); RED BLOOD CELL COUNT 4.19 mill/uL (4.2-5.4); RED CELL DISTRIBUTION WIDTH 15.9 % (11.6-14.6)
[2021-07-06 09:49] LABS: PLATELET ESTIMATE NORMAL
[2021-07-06 10:56] LABS: CHLORIDE 96 mEq/L (98-107)
[2021-07-06] MEDS ORDERED: TOPUD PO (11:36)
[2021-07-06 11:45] VITALS: BP 134/72
== END 2021-07-06 12:04 | disposition home or self-care (01) ==
LOC: ER 08:20
DX: M25.511 Pain in right shoulder (principal); I12.0 Hypertensive chronic kidney disease with stage 5 chronic kidney disease or end stage renal disease; N18.6 End stage renal disease; I25.10 Atherosclerotic heart disease of native coronary artery without angina pectoris; Z88.0 Allergy status to penicillin; Z88.8 Allergy status to other drugs, medicaments and biological substances; Z99.2 Dependence on renal dialysis; Z90.710 Acquired absence of both cervix and uterus; Z90.10 Acquired absence of unspecified breast and nipple; W06.XXXA Fall from bed, initial encounter; Y93.89 Activity, other specified; Y92.013 Bedroom of single-family (private) house as the place of occurrence of the external cause
CPT/HCPCS: 36415; 71045; 73030; 80053; 83880; 84484; 85025; 93005; 99285